=== PATIENT | male | born 1980 | race Caucasian/White ===

== ENCOUNTER 2020-05-31 15:39 | Emergency (ER) | payer SELFPAY ==
[~2020-05-31] VITALS: Ht 180.3 cm; Wt 127.0 kg
[2020-05-31 17:51] LABS: BASOPHILS % 0.5 % (0.0-2.0); EOSINOPHILS % 0.2 % (0.0-5.0); HEMATOCRIT. 45.2 % (42.0-52.0); HEMOGLOBIN. 15.1 g/dL (14.0-18.0); LYMPHOCYTES % 9.3 % (20.0-50.0); MEAN CORPUSCULAR HEMOGLOBIN 28.5 pg (28.0-32.0); MEAN CORPUSCULAR VOLUME 85.4 fL (80.0-94.0); MONOCYTES % 3.7 % (2.0-8.0); NEUTROPHILS % 86.3 % (40.0-76.0); PLATELET 250 x1000/uL (130-400); RED CELL DISTRIBUTION WIDTH 13.3 % (11.6-14.6)
[2020-05-31 17:57] LABS: CHLORIDE 102 mEq/L (98-107)
[2020-05-31 18:00] LABS: ETHANOL BLOOD < 10 mg/dL
[2020-05-31 18:10] VITALS: BP 140/75
== END 2020-05-31 19:23 | disposition left against medical advice (07) ==
LOC: ER 15:39
DX: R20.0 Anesthesia of skin (principal); R50.9 Fever, unspecified; E11.9 Type 2 diabetes mellitus without complications
CPT/HCPCS: 36415; 71045; 80053; 80320; 83880; 84484; 85025; 93005; 99285; G0480